=== PATIENT | male | born 1960 | race Caucasian/White ===

== ENCOUNTER 2018-04-20 16:31 | Emergency (ER) | payer BC, SELFPAY ==
[2018-04-20] MEDS ORDERED: THIAMINE 200 MG/2 ML INJ ONE (17:11)
[2018-04-20] MEDS ORDERED: NA CHLORIDE 0.9% 100 ML IV ONE (17:11)
[2018-04-20] MEDS ORDERED: NA CHLORIDE 0.9% 1,000 ML ONE (17:11)
[2018-04-20] MEDS ORDERED: ONDANSETRON 4 MG/2 ML VIAL ONE (17:11)
[2018-04-20 17:58] LABS: Absolute Lymphocytes (CBC) 2.3 K/uL (0.7-4.9); Absolute Monocytes 0.7 K/uL (0.1-1.3); Absolute Neutrophil 1.5 K/uL (1.8-8.0); Basophils % 1.8 % (0-1.3); Eosinophils % 4.6 % (0-4.4); Hematocrit 42.2 % (39.6-49.0); Lymphocytes % 48.6 % (15.3-44.8); MCH 36.5 pg (27.0-35.0); MCV 102.8 fL (80-100); MPV 9.7 fL (7.6-11.3); Monocytes % 14.4 % (3.3-12.3); RBC Red Blood Cell Count 4.11 M/uL (4.33-5.43)
[2018-04-20 17:59] LABS: Protime INR 0.92
[2018-04-20 18:11] LABS: ALT/SGPT 109 U/L (12-78); AST/SGOT 99 U/L (15-37); Albumin 4.2 g/dL (3.4-5.0); Alkaline Phosphatase 49 U/L (45-117); BUN Blood Urea Nitrogen 11 mg/dL (7-18); Bicarbonate 26 mmol/L (21-32); Bilirubin Direct 0.2 mg/dL (0-0.2); Bilirubin Total 0.7 mg/dL (0.2-1.0); Creatine Phosphokinase 122 U/L (39-308); Glucose Level 61 mg/dL (74-106); Magnesium 2.1 mg/dL (1.8-2.4); NT PRO-BNP 55 pg/mL (<125); Potassium 3.7 mmol/L (3.5-5.1); Protein, Total 7.9 g/dL (6.4-8.2); Sodium Level 139 mmol/L (136-145); Troponin (Emerg Dept Use Only) < 0.02 ng/mL (0.0-0.045)
[2018-04-20 18:32] LABS: Urine Bacteria <20 /HPF (NONE SEEN); Urine Culture Reflex Order NOT NEEDED; Urine RBC <5 /HPF (NONE SEEN)
--- NOTE | 2018-04-20 18:37 | RAD REPORT ---
EXAM DESCRIPTION: CT - Chest Abdomen Pelvis W Cont - 04/20/2018 6:24 pm CLINICAL HISTORY: Chest and abdominal pain. Left flank pain COMPARISON: None TECHNIQUE: Computed axial tomography of the chest, abdomen and pelvis was obtained. 100 cc Isovue-30 0 was administered intravenously. Oral contrast was not requested. This limits evaluation of bowel. All CT scans are performed using dose optimization technique as appropriate and may include automated exposure control or mA/KV adjustment according to patient size. FINDINGS: The lungs are clear. Mild paraseptal and centrilobular emphysema is present A pleural effusion is not present. A pericardial effusion is not noted. No mediastinal or hilar lymphadenopathy is seen Fatty infiltration of the liver is present. The Spleen, pancreas, adrenals and kidneys appear unremarkable. The appendix is normal. There is no evidence of diverticulitis. Spondylosis involves the mid and distal lumbar spine IMPRESSION: Mild COPD Fatty infiltration liver
--- NOTE | 2018-04-20 18:39 | RAD REPORT ---
EXAM DESCRIPTION: Jael Hensley And Jose Luis (2 Views)04/20/2018 6:15 pm CLINICAL HISTORY: Chest pain COMPARISON: None FINDINGS: The lungs are mildly hyperaerated. The lungs appear clear of acute infiltrate. The heart is normal size
--- NOTE | 2018-04-20 18:58 | ER ---
Nurse's Notes [facility] Name: Gerber Deluca Age: 57 yrs Sex: Male : 1960 Arrival Date: 04/20/2018 Time: 16:34 Bed 24 Private MD: None, None Diagnosis: Anorexia (loss of appetite);Left flank pain;Emphesema;elevated liver enzymes Presentation: 04/20 16:37 Presenting complaint: Patient states: Left flank pain for 6 months with decreased aj appetite. Transition of care: patient was not received from another setting of care. Onset of symptoms was October 2017. Risk Assessment: Do you want to hurt yourself or someone else? Patient reports no desire to harm self or others. Initial Sepsis Screen: Does the patient meet any 2 criteria? No. Patient's initial sepsis screen is negative. Does the patient have a suspected source of infection? No. Patient's initial sepsis screen is negative. Care prior to arrival: None. 16:37 Method Of Arrival: Ambulatory aj 16:37 Acuity: SURAJ 3 aj Triage Assessment: 16:39 General: Appears in no apparent distress. uncomfortable, Behavior is calm, cooperative, aj appropriate for age. Pain: Complains of pain in anterior aspect of left lateral abdomen, posterior aspect of left lateral abdomen and left upper quadrant. Neuro: Level of Consciousness is awake, alert, obeys commands, Oriented to person, place, time, situation, Appropriate for age. Respiratory: Airway is patent Respiratory effort is even, unlabored, Respiratory pattern is regular, symmetrical. GI: Reports upper abdominal pain, anorexia. Derm: Skin is intact, is healthy with good turgor, Skin is pink, warm \T\ dry. normal. Historical: - Allergies: 16:39 No Known Allergies; aj - Home Meds: 16:39 hydrocodone-acetaminophen 10-325 mg Oral tab 1 tab every 6 hours [Active]; aj - PMHx: 16:39 Chronic pain; aj - PSHx: 16:39 None; aj - Immunization history:: Adult Immunizations unknown. - Social history:: Smoking status: Patient uses tobacco products, smokes one pack cigarettes per day. Patient uses alcohol, claims drinking about a 6 pack/day. - Ebola Screening: : Patient negative for fever greater than or equal to 101.5 degrees Fahrenheit, and additional compatible Ebola Virus Disease symptoms Patient denies exposure to infectious person Patient denies travel to an Ebola-affected area in the 21 days before illness onset No symptoms or risks identified at this time. - Family history:: not pertinent. - Hospitalizations: : No recent hospitalization is reported. Screenin:30 Abuse screen: Denies threats or abuse. Nutritional screening: No deficits noted. mg2 Tuberculosis screening: No symptoms or risk factors identified. Fall Risk None identified. Assessment: 17:30 General: Appears slender, well groomed, well developed, well nourished, Behavior is mg2 calm, cooperative, appropriate for age, Smells of alcohol. Pain: Complains of pain in left flank and abdomen and left upper quadrant and posterior aspect of left lateral abdomen and anterior aspect of left lateral abdomen Pain began last 6 months. Neuro: Level of Consciousness is awake, alert, obeys commands, Oriented to person, place, time, situation, Appropriate for age. Cardiovascular: Patient's skin is warm and dry. Respiratory: Airway is patent Respiratory effort is even, unlabored, Respiratory pattern is regular, symmetrical. GI: Bowel sounds present X 4 quads. Abd is soft. : No signs and/or symptoms were reported regarding the genitourinary system. Urine is clear. EENT: No signs and/or symptoms were reported regarding the EENT system. Derm: No signs and/or symptoms reported regarding the dermatologic system. Musculoskeletal: No signs and/or symptoms reported regarding the musculoskeletal system. 18:42 Reassessment: Patient appears in no apparent distress at this time. No changes from mg2 previously documented assessment. Patient and/or family updated on plan of care and expected duration. Pain level reassessed. Patient is alert, oriented x 3, equal unlabored respirations, skin warm/dry/pink. pt returned from CT. 19:03 Reassessment: Patient appears in no apparent distress at this time. No changes from mg2 previously documented assessment. Patient and/or family updated on plan of care and expected duration. Pain level reassessed. Patient is alert, oriented x 3, equal unlabored respirations, skin warm/dry/pink. Dr Riddle at bedside discussing POC. Vital Signs: 16:39 BP 152 / 104; Pulse 98; Resp 16; Temp 98.0; Pulse Ox 95% on R/A; Weight 69.4 kg; Height aj 5 ft. 10 in. (177.80 cm); 17:30 BP 146 / 85; Pulse 87; Resp 18; Pulse Ox 97% on R/A; mg2 18:42 BP 142 / 89; Pulse 87; Resp 18; Pulse Ox 98% on R/A; mg2 16:39 Body Mass Index 21.95 (69.40 kg, 177.80 cm) ED Course: 16:34 Patient arrived in ED. mr 16:34 None, None is Private Physician. mr 16:38 Triage completed. aj 16:39 Arm band placed on left wrist. Patient placed in an exam room. aj 16:41 Claude Riddle MD is Attending Physician. wa 17:02 Ivy Rockwell, RN is Primary Nurse. tl3 17:30 Patient has correct armband on for positive identification. Bed in low position. Call mg2 light in reach. Side rails up X 1. Adult w/ patient. Pulse ox on. NIBP on. 17:30 Inserted saline lock: 20 gauge in right forearm, using aseptic technique. Blood mg2 collected. 17:30 No provider procedures requiring assistance completed. mg2 18:11 Chest Pa And Lat (2 Views) XRAY In Process Unspecified. EDMS 18:23 CT completed. Patient tolerated procedure well. Patient moved back from CT. bq 18:24 Chest Abdomen Pelvis W Cont In Process Unspecified. EDMS 19:03 IV discontinued, bleeding controlled, No redness/swelling at site. pt removed IV mg2 himself. Administered Medications: 17:27 Drug: Zofran 4 mg Route: IVP; Site: right forearm; mg2 18:41 Follow up: Response: No adverse reaction mg2 17:28 Drug: Thiamine 100 mg Route: IV; Rate: 100 mg/hr; Site: right forearm; Delivery: mg2 Primary tubing; 18:42 Follow up: IV Status: Completed infusion; IV Intake: 100ml mg2 17:28 Drug: NS 0.9% 1000 ml Route: IV; Rate: 1 bolus; Site: right forearm; Delivery: Primary mg2 tubing; 18:41 Follow up: IV Status: Completed infusion; IV Intake: 1000ml mg2 Intake: 18:41 IV: 1000ml; Total: 1000ml. mg2 18:42 IV: 100ml; Total: 1100ml. mg2 Outcome: 18:57 Discharge ordered by . wa 19:03 Discharged to home ambulatory. mg2 19:03 Condition: stable 19:03 Discharge instructions given to patient, family, Instructed on discharge instructions, follow up and referral plans. medication usage, Demonstrated understanding of instructions, follow-up care, medications, Prescriptions given X 2. 19:05 Patient left the ED. mg2 Signatures: Dispatcher [employer] EDAicha Duenas, RN Marianne Sherman mr Ana Nobles William, MD MD wa Lowrey, Tammy, RN RN tl3 John Antunez RN RN mg2
--- NOTE | 2018-04-20 18:58 | EDPHYS ---
Physician Documentation [facility] Name: Gerber Deluca Age: 57 yrs Sex: Male : 1960 Arrival Date: 04/20/2018 Time: 16:34 Bed 24 Private MD: None, None ED Physician Claude Riddle HPI: 04/20 17:44 This 57 yrs old Male presents to ER via Ambulatory with complaints of wa Abdominal Pain. 17:44 The patient complains of pain in the left flank. The pain does not radiate. Onset: The wa symptoms/episode began/occurred 6 month(s) ago. Modifying factors: The symptoms are alleviated by nothing. the symptoms are aggravated by nothing. Associated signs and symptoms: Pertinent positives: loss of appetite. weight loss. , Pertinent negatives: diarrhea, dizziness, dysuria, fever, headache, vomiting. Severity of pain: At its worst the pain was moderate in the emergency department the pain is unchanged. The patient has not experienced similar symptoms in the past. The patient has not recently seen a physician. per pt and , heavy drinking of vodka and beer daily. decreased appetite x 6 months. noted to pick at his food. admits to L flank pain. Denies chest pain or SOB. . Historical: - Allergies: 16:39 No Known Allergies; aj - Home Meds: 16:39 hydrocodone-acetaminophen 10-325 mg Oral tab 1 tab every 6 hours [Active]; aj - PMHx: 16:39 Chronic pain; aj - PSHx: 16:39 None; aj - Immunization history:: Adult Immunizations unknown. - Social history:: Smoking status: Patient uses tobacco products, smokes one pack cigarettes per day. Patient uses alcohol, claims drinking about a 6 pack/day. - Ebola Screening: : Patient negative for fever greater than or equal to 101.5 degrees Fahrenheit, and additional compatible Ebola Virus Disease symptoms Patient denies exposure to infectious person Patient denies travel to an Ebola-affected area in the 21 days before illness onset No symptoms or risks identified at this time. - Family history:: not pertinent. - Hospitalizations: : No recent hospitalization is reported. ROS: 17:50 Eyes: Negative for injury, pain, redness, and discharge, ENT: Negative for injury, wa pain, and discharge, Neck: Negative for injury, pain, and swelling, Cardiovascular: Negative for chest pain, palpitations, and edema, Back: Negative for injury and pain, MS/Extremity: Negative for injury and deformity, Skin: Negative for injury, rash, and discoloration, Neuro: Negative for headache, weakness, numbness, tingling, and seizure, Psych: Negative for depression, anxiety, suicide ideation, homicidal ideation, and hallucinations. 17:50 Constitutional: Positive for poor PO intake, weight loss, Negative for chills, fever. 17:50 Respiratory: Positive for cough, with no reported sputum, shortness of breath, at rest. Negative for hemoptysis, orthopnea. 17:50 Abdomen/GI: Positive for of the left flank, L flank pain, Negative for nausea, vomiting, diarrhea. 17:50 : Positive for flank pain, of the left flank, Negative for urinary symptoms. Exam: 17:57 Constitutional: This is a well developed, well nourished patient who is awake, alert, wa and in no acute distress. Head/Face: Normocephalic, atraumatic. Eyes: Pupils equal round and reactive to light, extra-ocular motions intact. Lids and lashes normal. Conjunctiva and sclera are non-icteric and not injected. Cornea within normal limits. Periorbital areas with no swelling, redness, or edema. ENT: Nares patent. No nasal discharge, no septal abnormalities noted. Tympanic membranes are normal and external auditory canals are clear. Oropharynx with no redness, swelling, or masses, exudates, or evidence of obstruction, uvula midline. Mucous membranes moist. Neck: Trachea midline, no thyromegaly or masses palpated, and no cervical lymphadenopathy. Supple, full range of motion without nuchal rigidity, or vertebral point tenderness. No Meningismus. Chest/axilla: Normal chest wall appearance and motion. Nontender with no deformity. No lesions are appreciated. Cardiovascular: Regular rate and rhythm with a normal S1 and S2. No gallops, murmurs, or rubs. Normal PMI, no JVD. No pulse deficits. Back: No spinal tenderness. No costovertebral tenderness. Full range of motion. Skin: Warm, dry with normal turgor. Normal color with no rashes, no lesions, and no evidence of cellulitis. MS/ Extremity: Pulses equal, no cyanosis. Neurovascular intact. Full, normal range of motion. Neuro: Awake and alert, GCS 15, oriented to person, place, time, and situation. Cranial nerves II-XII grossly intact. Motor strength 5/5 in all extremities. Sensory grossly intact. Cerebellar exam normal. Normal gait. Psych: Awake, alert, with orientation to person, place and time. Behavior, mood, and affect are within normal limits. 17:57 Respiratory: the patient does not display signs of respiratory distress, Respirations: normal, Breath sounds: mildly coarse bilaterally, Respiratory rate: normal 17:57 Abdomen/GI: Inspection: abdomen appears normal, Bowel sounds: normal, in all quadrants, Palpation: soft, in all quadrants, mild abdominal tenderness, in the left flank, no appreciated organomegaly. Vital Signs: 16:39 BP 152 / 104; Pulse 98; Resp 16; Temp 98.0; Pulse Ox 95% on R/A; Weight 69.4 kg; Height aj 5 ft. 10 in. (177.80 cm); 17:30 BP 146 / 85; Pulse 87; Resp 18; Pulse Ox 97% on R/A; mg2 18:42 BP 142 / 89; Pulse 87; Resp 18; Pulse Ox 98% on R/A; mg2 16:39 Body Mass Index 21.95 (69.40 kg, 177.80 cm) aj MDM: 16:41 Patient medically screened. wa 17:58 Differential diagnosis: nephrolithiasis, pyelonephritis, diverticulitis, pancreatitis, wa r/o neoplasia. pulm vs abd origin. Data reviewed: vital signs, nurses notes. Test interpretation: by ED physician or midlevel provider: EKG: HR: 76. LBBB. . 18:02 Test interpretation: by ED physician or midlevel provider: no old comparison EKG wa available. 18:54 Test interpretation: by ED physician or midlevel provider: labs noted for elevated ia liver enzymes. CXR: emphesema. CT chest/abd/pelvis: mild COPD. fatty lever. Response to treatment: the patient's symptoms have mildly improved after treatment. 04/20 16:59 Order name: Basic Metabolic Panel; Complete Time: 18:44 04/20 16:59 Order name: CBC with Diff; Complete Time: 18:45 04/20 16:59 Order name: CPK; Complete Time: 18:45 04/20 16:59 Order name: LFT's; Complete Time: 18:45 04/20 16:59 Order name: Magnesium; Complete Time: 18:45 ia 04/20 16:59 Order name: NT PRO-BNP; Complete Time: 18:45 ia 04/20 16:59 Order name: PT-INR; Complete Time: 18:45 ia 04/20 16:59 Order name: Troponin (emerg Dept Use Only); Complete Time: 18:45 ia 04/20 16:59 Order name: Urine Microscopic Only; Complete Time: 18:45 ia 04/20 16:59 Order name: Chest Pa And Lat (2 Views) XRAY ia 04/20 17:14 Order name: Chest Abdomen Pelvis W Cont; Complete Time: 18:44 EDMS 04/20 18:04 Order name: Urine Dipstick--Ancillary (enter results) 04/20 16:59 Order name: EKG; Complete Time: 17:00 ia 04/20 16:59 Order name: Cardiac monitoring; Complete Time: 17:29 ia 04/20 16:59 Order name: EKG - Nurse/Tech; Complete Time: 17:45 ia 04/20 16:59 Order name: IV Saline Lock; Complete Time: 17:29 ia 04/20 16:59 Order name: Labs collected and sent; Complete Time: 17:29 ia 04/20 16:59 Order name: O2 Sat Monitoring; Complete Time: 17:29 ia Administered Medications: 17:27 Drug: Zofran 4 mg Route: IVP; Site: right forearm; mg2 18:41 Follow up: Response: No adverse reaction mg2 17:28 Drug: Thiamine 100 mg Route: IV; Rate: 100 mg/hr; Site: right forearm; Delivery: mg2 Primary tubing; 18:42 Follow up: IV Status: Completed infusion; IV Intake: 100ml mg2 17:28 Drug: NS 0.9% 1000 ml Route: IV; Rate: 1 bolus; Site: right forearm; Delivery: Primary mg2 tubing; 18:41 Follow up: IV Status: Completed infusion; IV Intake: 1000ml mg2 Disposition: 04/20/18 18:57 Discharged to Home. Impression: Anorexia (loss of appetite), Left flank pain, Emphesema, elevated liver enzymes. - Condition is Stable. - Discharge Instructions: Chronic Obstructive Pulmonary Disease, [id number], Abdominal Pain, Adult, [id number]. - Prescriptions for Zofran 4 mg Oral Tablet - take 1 tablet by ORAL route every 12 hours As needed; 20 tablet. Albuterol Sulfate 90 mcg/actuation - inhale 1-2 puff by INHALATION route every 4-6 hours; 1 Inhaler. - Medication Reconciliation Form, Thank You Letter, Antibiotic Education, Prescription Opioid Use form. - Follow up: Private Physician; When: 2 - 3 days; Reason: Recheck today's complaints. - Problem is new. - Symptoms have improved. - Notes: quit smoking cigerettes. quit drinking so much alcohol. The smoking if causing lung damage. the alcohol is causing liver injury. follo wup with primary care doctor as discussed Signatures: Dispatcher [employer] EDMS Aicha Rogers RN RN aj Claude Riddle MD MD wa John Antunez RN RN mg2 Corrections: (The following items were deleted from the chart) 17:14 17:00 Abdomen Pelvis W Con+CT.RAD.BRZ ordered. EDMS EDMS 17:14 17:00 Thorax W/ Con+CT.RAD.BRZ ordered. EDMS EDMS 19:05 18:57 04/20/2018 18:57 Discharged to Home. Impression: Anorexia (loss of appetite); mg2 Left flank pain; Emphesema; elevated liver enzymes. Condition is Stable. Forms are Medication Reconciliation Form, Thank You Letter, Antibiotic Education, Prescription Opioid Use. Follow up: Private Physician; When: 2 - 3 days; Reason: Recheck today's complaints. Problem is new. Symptoms have improved. wa
[2018-04-20 19:35] LABS: Urine Blood NEGATIVE (NEG); Urine Glucose NEGATIVE (NEG); Urine Protein NEGATIVE (NEG); Urine Specific Gravity 1.015 (1.005-1.030)
--- NOTE | 2018-04-22 06:55 | EKG ---
Test Date: 2018-04-20 Test Time: 17:43:53 Scrum Master: KEN MEASUREMENT RESULTS: Intervals: Rate: 76 SD: 122 QRSD: 144 QT: 442 QTc: 497 [place]: P: 16 SD: 122 QRS: -1 T: 172 INTERPRETIVE STATEMENTS: Normal sinus rhythm Left bundle branch block Abnormal ECG No previous ECG available for comparison Electronically Signed On 04-22-18 06:51:33 CDT by Trever Cardoso
== END 2018-04-20 19:05 | disposition home or self-care (01) ==
LOC: ER 16:31
DX: F50.89 Other specified eating disorder (principal); J43.9 Emphysema, unspecified; R79.89 Other specified abnormal findings of blood chemistry; F17.210 Nicotine dependence, cigarettes, uncomplicated
CPT/HCPCS: 36415; 71046; 71260; 74177; 80048; 80076; 81003; 81015; 82550; 83735; 83880; 84484; 85025; 85610; 93005; J2405; J3411; J7030; Q9967